=== PATIENT | female | born 1970 | race Caucasian/White ===

== ENCOUNTER → 2016-05-12 | Outpatient (CLI) | payer OTHER ==
[~2016-05-12] MED LIST: ADIPEX-P37.5 MG PO; AMBIEN 10MG10 MG PO; ATIVAN 0.50.5 MG/TAB PO; ATIVAN 1MG T1 MG/TAB PO; CETIRIZINE; DESYREL 50MG50 MG PO; DOXYCYCLINE 10100 MG PO; FLONASE NASAL S16 GM NS; NEXIUM 40MG40 MG PO; PHENERGAN 25 TA25 MG PO; PRILOSEC 20MG20 MG PO; SEPTRA DS 8001 TAB PO; VIIBRYD40 MG PO; ZYRTEC 10MG10 MG PO
== END ==
LOC: COL.RAD 08:10
DX: N93.9 Abnormal uterine and vaginal bleeding, unspecified (principal); N88.8 Other specified noninflammatory disorders of cervix uteri